=== PATIENT | male | born 2000 | race African-American/Black ===

== ENCOUNTER 2020-03-31 17:41 | Emergency (ER) | payer OTHER, SELFPAY ==
[2020-03-31 17:53] VITALS: BP 134/67; PULSE 74; RESP 16; TEMP 36.6; O2SAT 97; BMI 28.0
--- NOTE | 2020-03-31 18:09 | ED_ITS ---
HPI - General Adult General Chief complaint: Urogenital-Male Stated complaint: blood in urine Time Seen by Provider: 03/31/20 18:06 Source: patient Mode of arrival: Ambulatory Limitations: no limitations History of Present Illness HPI narrative: Patient is a 19-year-old circumcised male here for evaluation hematuria. Patient states that he urinated after having vaginal intercourse earlier today has stated that there was blood in his urine. No pain. No abdominal pain. No problems with bowel movements. Has never had any sexually transmitted diseases in the past. Has 1 sexual partner. No lumps or bumps on his penis or scrotum. Has never had a kidney stone the past. No fevers. No vomiting. Related Data Allergies Allergy/AdvReac Type Severity Reaction Status Date / Time No Known Drug Allergies Allergy Verified 03/31/20 20:37 Review of Systems Constitutional Constitutional: Denies fever(s) and Denies headache(s) ENT Ears, Nose, Mouth, and Throat: Denies headache(s) Cardiovascular Cardiovascular: Denies chest pain and Denies dyspnea Respiratory Respiratory: Denies dyspnea Gastrointestinal Gastrointestinal: Denies abdominal pain, Denies diarrhea, Denies nausea and Denies vomiting Genitourinary Genitourinary: Denies change in libido, Reports hematuria, Denies difficulty urinating, Denies difficulty with ejaculations, Denies dysuria, Denies penile discharge and Denies urinary incontinence Genitourinary: Reports hematuria, Denies change in libido, Denies dysuria and Denies urinary incontinence Musculoskeletal Musculoskeletal: Denies arthralgias and Denies myalgias Integumentary/Breasts Skin/Breast: Denies rash Neurologic Neurologic: Denies behavioral changes and Denies headache(s) Psychiatric Psychiatric: Denies behavioral changes and Denies change in libido Endocrine Endocrine: Denies change in libido Hematologic/Lymphatic Hematologic/Lymphatic: Denies easy bleeding and Denies easy bruising Allergic/Immunologic Allergic/Immunologic: Denies urticaria Patient History Medical History Healthy adult (Acute) Social History lives independently: Yes Exam Initial Vital Signs Initial Vital Signs: Vital Signs Temperature 97.8 F 03/31/20 17:53 Pulse Rate 74 03/31/20 17:53 Respiratory Rate 16 03/31/20 17:53 Blood Pressure 134/67 03/31/20 17:53 Pulse Oximetry 97 03/31/20 17:53 Const General: cooperative and comfortable Limitations: mental status not altered HENMT Head: normal to inspection and normocephalic Resp Effort & Inspection: normal respiratory effort Cardio Rate: regular rate GI Inspection: non-distended Palpation: soft, No firm and No tender External: circumcised, no erythema and no lacerations Penis: normal penis, no condylomata and no ecchymosis Meatus: meatal discharge (Blood at the tip of the meatus) Scrotum: scrotum normal Testes: normal Skin Lesions: no lesions Rashes: no rashes Neuro General: patient alert, patient awake and patient oriented x3 Cognition: normal cognition Speech: speech normal Extrem General: normal to inspection and capillary refill normal Psych Appearance: grossly normal and well kempt Course Orders Ordered: ED Orders 03/31/20 18:35 Chlamydia Gonorrhea PCR -URINE Stat Urinalysis and Microscopic Stat Urine Culture Stat Discontinued Medications Azithromycin (Zithromax) 1,000 mg PO NOW ONE Stop: 03/31/20 20:31 Last Admin: 03/31/20 20:37 Dose: 1,000 mg Documented by: [email or web address] Vital Signs Vital signs: Vital Signs - 8 hr 03/31/20 17:53 03/31/20 19:47 Temperature 97.8 F 97.2 F L Pulse Rate 74 65 Respiratory Rate 16 16 Blood Pressure 134/67 140/88 Pulse Oximetry 97 100 Medical Decision Making Lab Data Lab results reviewed: Yes I reviewed the patient's lab results. Labs: Lab Results 03/31/20 03/31/20 Range/Units 18:35 18:35 Urine Color Yellow Urine Appearance Clear Urine pH 6.5 (4.5-8.0) Ur Specific [place] 1.020 (1.000-1.035) Urine Protein Negative (Negative) Urine Glucose (UA) Negative (Negative) g/dL Urine Ketones Negative (NEGATIVE) Urine Occult Blood 3+ H (Negative) Urine Nitrate Negative (Negative) Urine Bilirubin Negative (NEGATIVE) Urine Urobilinogen 0.2 (0.2) E.U./dL Ur Leukocyte Esterase Trace H (NEGATIVE) Urine RBC 10-30/hpf H (0-5/HPF) Urine WBC 10-30/hpf H (0-5/HPF) Urine Bacteria None seen (None) Ur Culture Indicated? Specimen cultured Ur Chlamydia DNA (PCR) Detected H N gonorrhoeae DNA (PCR) Not detected MDM Narrative Medical decision making narrative: Patient does have blood at the meatus otherwise his physical exam is unremarkable. His GC/chlamydia was positive for chlamydia. I will treat him for this. He was informed of the diagnosis. He was informed that he needed to talk with his partner about this. He was informed that he should abstain from sexual activity until he has a test of cure which can be done by his medical department. I do have low suspicion for prostatitis. Low suspicion for a urinary tract infection. A urine culture was pending at the time his discharge. We will contact him for any positive results. Patient was given a dose of azithromycin here in the ER. He is given return precautions and follow-up instructions. He expressed understanding and agreement. Discharge Plan Departure Patient Disposition: Home Clinical Impression: Chlamydia infection Hematuria Qualifiers: Hematuria type: unspecified type Qualified Code(s): R31.9 - Hematuria, unspecified Instructions: Chlamydia, DI for Hematuria Activity Restrictions/Additional Instructions: Recommend that you avoid sexual contact for the next week. It is important that you follow-up with your medical department to have another test to make sure that you treatment today was successful. I also highly recommend that you inform your partner that you are positive for chlamydia. Your partner should be tested/treated as well. Return to the emergency department for any new or worsening symptoms
[2020-03-31 18:52] LABS: Bacteria Urine None Seen
--- NOTE | 2020-03-31 18:52 | PC.NURSE ---
Patient reports he was having rough sex and after had blood coming from penis and penile pain.
[2020-03-31 19:05] LABS: Appearance Urine UA CLEAR; Bilirubin Urine UA NEGATIVE (NEGATIVE); Color Urine UA YELLOW; Glucose Urine UA NEGATIVE (Negative); Ketones Urine UA NEGATIVE (NEGATIVE); Leukocyte Esterase Urine UA TRACE (NEGATIVE); Nitrite Urine UA NEGATIVE (Negative); Occult Blood Urine UA 3+ (Negative); Protein Urine UA NEGATIVE (Negative); Urobilinogen Urine UA 0.2 E.U./dL (0.2); pH Urine UA 6.5 (4.5-8.0)
[2020-03-31 19:12] LABS: RBC Urine 10-30/HPF (0-5/HPF); WBC Urine 10-30/HPF (0-5/HPF)
[2020-03-31 19:13] LABS: Culture Indicated Urine Specimen Cultured
[2020-03-31 19:47] VITALS: BP 140/88; PULSE 65; RESP 16; TEMP 36.2; O2SAT 100
[2020-03-31 20:21] LABS: Urine N gonorrhoeae NOT DETECTED
[2020-03-31 20:23] LABS: Urine Chlamydia DETECTED
[2020-03-31] MEDS: AZITHROMYCIN 250 MG TABLET 1000 MG PO (20:37)
== END 2020-03-31 20:40 | disposition home or self-care (01) ==
PROVIDERS: Emergency Provider Emergency Medicine
DX: A74.9 Chlamydial infection, unspecified (principal); R31.9 Hematuria, unspecified
CPT/HCPCS: 81001; 87086; 87491; 87591; 99283